=== PATIENT | male | born 1990 | race Two or more races ===

== ENCOUNTER 2023-01-10 03:58 | Emergency (ER) | payer OTHER ==
[~2023-01-10] VITALS: Ht 190.5 cm; Wt 155.1 kg
[~2023-01-10 03:58] MED LIST: SINGULAIR4 MG PO
[2023-01-10] MEDS ORDERED: VISTARIL50 MG (04:15)
[2023-01-10] MEDS ORDERED: CEPHALEXIN500 MG PO (06:06)
[2023-01-10] MEDS ORDERED: ORASEP SPRAY30 ML MM (06:06)
== END 2023-01-10 06:12 ==
LOC: ER 03:58
DX: J02.9 Acute pharyngitis, unspecified (principal); Z91.013 Allergy to seafood